=== PATIENT | male | born 1970 | race Two or more races ===

== ENCOUNTER 2022-10-24 17:36 | Inpatient (IN) | payer MEDICAID ==
[~2022-10-24] VITALS: Ht 160 cm; Wt 88.5 kg
--- NOTE | 2022-10-24 17:47 | NUR ---
pt in bed, urine sample collected
--- NOTE | 2022-10-24 17:52 | NUR ---
pt being seen by
[2022-10-24] MEDS ORDERED: PANTOPRAZOLE 40 MG VIAL IV ONE (18:00)
[2022-10-24] MEDS ORDERED: MAG HYDROX/AL HYDROX/SIMETH 30 ML UDC PO ONE (18:00)
[2022-10-24] MEDS ORDERED: IV NS 0.9% 1,000 ML BAG IV ONE (18:00)
[2022-10-24] MEDS ORDERED: LIDOCAINE VISCOUS 2% UD 15 ML UDC MM ONE (18:00)
[2022-10-24] MEDS ORDERED: METOCLOPRAMIDE HCL 10 MG/2 ML VIAL IV ONE (18:00)
[2022-10-24] MEDS ORDERED: MAG HYDROX/AL HYDROX/SIMETH 30 ML UDC ONE (18:06)
[2022-10-24] MEDS ORDERED: PANTOPRAZOLE 40 MG VIAL ONE (18:06)
[2022-10-24] MEDS ORDERED: LIDOCAINE VISCOUS 2% UD 15 ML UDC ONE (18:07)
[2022-10-24] MEDS ORDERED: METOCLOPRAMIDE HCL 10 MG/2 ML VIAL ONE (18:07)
[2022-10-24 18:14] LABS: BASOPHILS % (AUTO) 0.1 % (0.0-2.0); EOSINOPHILS % (AUTO) 0.1 % (0.0-6.0); HEMATOCRIT 49 % (39-51); HEMOGLOBIN 16.2 g/dL (13.5-17.5); LYMPHOCYTES # (AUTO) 0.9 K/uL (0.8-4.8); LYMPHOCYTES % (AUTO) 5.6 % (20.0-44.0); MEAN CORPUSCULAR HGB CONC 33 g/dl (31.0-36.0); MEAN CORPUSCULAR VOLUME 90 fL (80-96); MONOCYTES # (AUTO) 0.7 K/uL (0.1-1.30); MONOCYTES % (AUTO) 4.4 % (2.0-12.0); NEUTROPHILS % (AUTO) 89.8 % (43.0-81.0); PLATELET COUNT (AUTO) 212 K/uL (150-450); RED BLOOD CELL COUNT(AUTO) 5.42 MIL/uL (4.5-6.0); WHITE BLOOD COUNT (AUTO) 16.7 K/uL (4.3-11.0)
[2022-10-24 18:33] LABS: CALCIUM, SERUM 9.2 mg/dL (8.5-10.1); CREATININE 0.9 mg/dL (0.6-1.3); POTASSIUM 3.5 mmol/L (3.5-5.1)
[2022-10-24 18:34] LABS: BILIRUBIN,URINE NEGATIVE (NEGATIVE); COLOR,URINE YELLOW (YELLOW); LEUKOCYTE ESTERASE ,URINE NEGATIVE (NEGATIVE); NITRITE, URINE NEGATIVE (NEGATIVE); PROTEIN,URINE NEGATIVE (NEGATIVE); UGLUCOSE NEGATIVE (NEGATIVE); UROBILINOGEN,URINE 0.2 EU/dL (0.2)
[2022-10-24 18:35] LABS: ALBUMIN 4.1 g/dL (3.4-5.0); BILIRUBIN,DIRECT 0.3 mg/dL (0.0-0.2); BILIRUBIN,TOTAL 1.1 mg/dL (0.2-1.0); TOTAL PROTEIN, SERUM 8.5 g/dL (6.4-8.2)
[2022-10-24 18:46] LABS: BACTERIA,URINE Few /HPF (None Seen); SQUAMOUS EPITHELIAL CELL,UR Few /HPF (None Seen); WBC,URINE NONE SEEN /HPF (0-3)
--- NOTE | 2022-10-24 19:00 | NUR ---
report rec'd from AM shift. here for abd pain. awaiting er provider [email or web address]
[2022-10-24] MEDS ORDERED: PIPERACILLIN /TAZOBACTAM 3.375 G in IV D5W 50 ML IV ONE (19:30)
[2022-10-24] MEDS ORDERED: PIPERACILLIN /TAZOBACTAM 3.375 G VIAL IV ONE (19:48)
--- NOTE | 2022-10-24 21:06 | NUR ---
DR. LUIS NEVILLE ON PHONE CALL WITH DR. YANCEY ADMITTING
--- NOTE | 2022-10-24 21:51 | NUR ---
report given to charge nurse saira jain
[2022-10-24] MEDS ORDERED: Z GUARD REMEDY 4 OZ OINT TP PRN (22:00)
[2022-10-24] MEDS ORDERED: MAG HYDROX/AL HYDROX/SIMETH 30 ML UDC PO PRN (22:00)
[2022-10-24] MEDS ORDERED: ONDANSETRON HCL/PF 4 MG/2 ML VIAL IVP PRN (22:00)
[2022-10-24] MEDS ORDERED: MAGNESIUM HYDROXIDE 30 ML UDC PO PRN (22:00)
[2022-10-24] MEDS ORDERED: MORPHINE SULFATE INJ 2 MG/ML DISP.SYRIN IV PRN (22:00)
[2022-10-24] MEDS ORDERED: ACETAMINOPHEN 325 MG TABLET PO PRN (22:00)
--- NOTE | 2022-10-24 22:05 | NUR ---
pt transported to 3rd floor
--- NOTE | 2022-10-24 22:15 | NUR ---
MS RN ADMITTING NOTE PATIENT TRANSFERRED FROM ER TO [facility] ROOM 326 - 2 VIA GURNEY AT 2200H; PATIENT IS ALERT AND ORIENTED X 4, ABLE TO MAKE NEEDS KNOWN; PATIENT ORIENTED TO STAFF AND ROOM; VITAL SIGNS TAKEN, TEMPERATURE WAS HIGH INITIALLY BUT WENT DOWN TO 98.5; STABLE ON ROOM AIR, BREATHING EVENLY AND UNLABORED; SKIN IS INTACT; WITH IV ACCESS ON LAC G#20; PATIENT'S BELONGINGS ACCOUNTED FOR; SAFETY MEASURES IMPLEMENTED, BED IN LOW AND LOCKED POSITION, SIDE RAILS UP X 2, CALL LIGHT AND TABLE WITHIN REACH; WILL CONTINUE TO MONITOR THROUGHOUT SHIFT
[2022-10-24] MEDS: IV NS 0.9% 1,000 ML IV PRN (22:43)
[2022-10-25] MEDS ORDERED: PIPERACILLIN /TAZOBACTAM 3.375 G VIAL IV ONE (01:22)
[2022-10-25] MEDS: ZOSYN IVPB 3.375 G in IV D5W 50ml IV ONE ×2 (01:29→01:38)
[2022-10-25 06:02] LABS: BASOPHILS % (AUTO) 0.1 % (0.0-2.0); HEMATOCRIT 44 % (39-51); HEMOGLOBIN 14.3 g/dL (13.5-17.5); LYMPHOCYTES # (AUTO) 1.2 K/uL (0.8-4.8); LYMPHOCYTES % (AUTO) 4.2 % (20.0-44.0); MEAN CORPUSCULAR HGB CONC 33 g/dl (31.0-36.0); MEAN CORPUSCULAR VOLUME 90 fL (80-96); MONOCYTES # (AUTO) 1.5 K/uL (0.1-1.30); MONOCYTES % (AUTO) 5.4 % (2.0-12.0); NEUTROPHILS # (AUTO) 25.5 K/uL (1.8-8.9); NEUTROPHILS % (AUTO) 90.3 % (43.0-81.0); PLATELET COUNT (AUTO) 179 K/uL (150-450); RED BLOOD CELL COUNT(AUTO) 4.86 MIL/uL (4.5-6.0); WHITE BLOOD COUNT (AUTO) 28.3 K/uL (4.3-11.0)
[2022-10-25 07:00] VITALS: BP 98/57
[2022-10-25 07:07] LABS: ALBUMIN 3.2 g/dL (3.4-5.0); BILIRUBIN,DIRECT 0.3 mg/dL (0.0-0.2); CALCIUM, SERUM 8.4 mg/dL (8.5-10.1); CREATININE 0.9 mg/dL (0.6-1.3); PHOSPHORUS 4.1 mg/dL (2.5-4.9); POTASSIUM 3.3 mmol/L (3.5-5.1); TOTAL PROTEIN, SERUM 6.8 g/dL (6.4-8.2)
--- NOTE | 2022-10-25 07:15 | NUR ---
MS RN CLOSING NOTE PATIENT RESTING IN BED, ALERT AND ORIENTED X 4, ABLE TO MAKE NEEDS KNOWN; STABLE ON ROOM AIR, BREATHING EVENLY AND UNLABORED, NO RESPIRATORY DISTRESS NOTED; SKIN IS INTACT; WITH IV ACCESS ON LAC G#20 INFUSING WITH NORMAL SALINE AT 75 ML/HR; ADMINISTERED MEDICATIONS PRESCRIBED; PATIENT'S NEEDS ATTENDED; MONITORED PATIENT ACCORDINGLY; SAFETY MEASURES IMPLEMENTED, BED IN LOW AND LOCKED POSITION, SIDE RAILS UP X 2, CALL LIGHT AND TABLE WITHIN REACH; WILL ENDORSE TO AM NURSE FOR JAMES.
--- NOTE | 2022-10-25 07:30 | NUR ---
MS RN OPENING NOTE RECEIVED PATIENT IN BED, AWAKE. ALERT AND ORIENTED X 4, ABLE TO MAKE NEEDS KNOWN. NO C/O PAIN/DISCOMFORT AT THIS TIME. STABLE ON ROOM AIR, NO SIGN OF ACUTE RESPIRATORY DISTRESS NOTED. IV ACCESS ON LAC #20G WITH ONGOING NORMAL SALINE AT 75 ML/HR, INFUSING WELL. PATIENT ON NPO. SAFETY MEASURES IN PLACE: BED LOCKED AND IN LOWEST POSITION, SIDE RAILS UP X 2, CALL LIGHT AND TABLE WITHIN EASY REACH. WILL CONTINUE TO MONITOR.
[2022-10-25] MEDS: PIPERACILLIN /TAZOBACTAM 3.375 G in IV D5W 100 ML IV SCH ×3 (09:15→23:01)
[2022-10-25] MEDS: POTASSIUM CL. PREMIX PERIPHER. 50 ML IV SCH ×4 (09:53→13:43)
--- NOTE | 2022-10-25 13:50 | NUR ---
RN NOTES LAB CALLED AND WAS INFORMED THAT PT'S BLOOD CULTURE IS GRAM POSITIVE COCCI, DR. RUBIO MADE AWARE.
[2022-10-25 16:00] VITALS: BP 135/78
[2022-10-25] MEDS ORDERED: POTASSIUM CHLORIDE 20 MEQ TAB.PRT.SR PO ONE (16:00)
--- NOTE | 2022-10-25 18:37 | NUR ---
MS RN CLOSING NOTE PATIENT RESTING IN BED. A/O X 4, ABLE TO MAKE NEEDS KNOWN. NO C/O PAIN/DISCOMFORT WITHIN THE SHIFT. STABLE ON ROOM AIR, NO SIGN OF ACUTE RESPIRATORY DISTRESS NOTED. IV ACCESS ON LAC #20G WITH ONGOING NORMAL SALINE AT 75 ML/HR, INFUSING WELL. IV ACCESS ON THE RIGHT WRIST,SL, C/D/I. PATIENT STILL ON NPO. SAFETY MEASURES IN PLACE: BED LOCKED AND IN LOWEST POSITION, SIDE RAILS UP X 2, CALL LIGHT AND TABLE WITHIN EASY REACH. WILL ENDORSE JAMES TO ANTENNA INSTALLER.
--- NOTE | 2022-10-25 19:00 | NUR ---
MS RN OPENING NOTE PT IS RESTING IN BED, TALKING WITH HIS CHILDREN. HE IS ALERT AND ORIENTED, AO X 4. PT IS ON RA, TOLERATED WELL. NO S/S OF DISTRESS OR SOB. IV SITE IS AT HIS L AC, #20G, RUNNING NS @75 ML / HR. ANOTHER IV ACCESS IS AT HIS RIGHT WRIST, #20G, SL. IV ACCESS IS PATENT AND INTACT. PT IS ON NPO, INSTRUCTED THE PATIENT SHOULD NOT EAT OR DRINK ANYTHING BY MOUTH, PT VERBALIZED UNDERSTANDING. REMOVED PITCHER AND CUP FROM PT'S TABLE. SAFETY MEASURES ARE IN PLACE: BED IN LOWEST AND LOCKED POSITION; SIDE RAILS UP X 2; CALL LIGHT AND TABLE ARE WITHIN EASY REACH. WILL CONTINUE MONITORING THE PATIENT'S CONDITION, AND PROVIDE THE CARE PT NEEDS.
[2022-10-25 20:00] VITALS: BP 124/77
[2022-10-25] MEDS: IV NS 0.9% 1,000 ML IV PRN (22:33)
[2022-10-26 03:34] LABS: BAND % (MANUAL) 3 % (0.0-5.0); BASOPHILS % (MANUAL) 0 % (0.0-2.0); EOSINOPHILS % (MANUAL) 0 % (0-4); LYMPHOCYTES % (MANUAL) 4 % (16-48); MONOCYTES % (MANUAL) 3 % (0-11.0); NEUTROPHILS % (MANUAL) 90 (42-76)
--- NOTE | 2022-10-26 06:39 | NUR ---
MS RN CLOSING NOTE PATIENT IS SLEEPING IN BED; EASILY BEING AROUSED. HE IS ALERT AND ORIENTED, AO X 4. PT IS ON RA, TOLERATED WELL. NO S/S OF DISTRESS OR SOB. IV SITE IS AT HIS L AC, #20G, RUNNING NS @75 ML / HR. ANOTHER IV ACCESS IS AT HIS RIGHT WRIST, #20G, SL. IV ACCESS IS PATENT AND INTACT. PT HAS BEEN ON NPO, SAFETY MEASURES ARE IN PLACE: BED IN LOWEST AND LOCKED POSITION; SIDE RAILS UP X 2; CALL LIGHT AND TABLE ARE WITHIN EASY REACH. WILL ENDORSE NEXT SHIFT NURSE FOR CONTINUING PT CARE.
--- NOTE | 2022-10-26 07:27 | NUR ---
MS RN OPENING NOTE RECEIVED PATIENT IN BED, AWAKE. A/O X 4, CALM AND COOPERATIVE, ABLE TO MAKE NEEDS KNOWN. NO C/O PAIN/DISCOMFORT AT THIS TIME. STABLE ON ROOM AIR, NO SIGN OF ACUTE RESPIRATORY DISTRESS NOTED. IV ACCESS ON LAC #20G WITH ONGOING NORMAL SALINE AT 75 ML/HR, INFUSING WELL. IV ACCESS IN RIGHT WRIST #20G, SL, C/D/I. PATIENT ON NPO. SAFETY MEASURES IN PLACE: BED LOCKED AND IN LOWEST POSITION, SIDE RAILS UP X 2, CALL LIGHT AND TABLE WITHIN EASY REACH. WILL CONTINUE TO MONITOR.
[2022-10-26] MEDS: PIPERACILLIN /TAZOBACTAM 3.375 G in IV D5W 100 ML IV SCH ×3 (07:42→23:41)
[2022-10-26 08:38] LABS: BASOPHILS % (AUTO) 0.2 % (0.0-2.0); EOSINOPHILS % (AUTO) 0.2 % (0.0-6.0); HEMATOCRIT 42 % (39-51); HEMOGLOBIN 13.9 g/dL (13.5-17.5); LYMPHOCYTES # (AUTO) 1.6 K/uL (0.8-4.8); LYMPHOCYTES % (AUTO) 11.3 % (20.0-44.0); MEAN CORPUSCULAR HGB CONC 33 g/dl (31.0-36.0); MEAN CORPUSCULAR VOLUME 90 fL (80-96); MONOCYTES # (AUTO) 1.1 K/uL (0.1-1.30); MONOCYTES % (AUTO) 7.4 % (2.0-12.0); NEUTROPHILS # (AUTO) 11.5 K/uL (1.8-8.9); NEUTROPHILS % (AUTO) 80.9 % (43.0-81.0); PLATELET COUNT (AUTO) 155 K/uL (150-450); RED BLOOD CELL COUNT(AUTO) 4.66 MIL/uL (4.5-6.0); WHITE BLOOD COUNT (AUTO) 14.2 K/uL (4.3-11.0)
--- NOTE | 2022-10-26 09:00 | NUR ---
RN NOTES DR. RUBIO IN THE UNIT, ORDERED REGULAR DIET FOR PT. CARRIED OUT.
[2022-10-26 09:17] LABS: CALCIUM, SERUM 8.4 mg/dL (8.5-10.1); CREATININE 0.9 mg/dL (0.6-1.3); POTASSIUM 3.9 mmol/L (3.5-5.1)
[2022-10-26 09:21] LABS: ALBUMIN 2.9 g/dL (3.4-5.0); BILIRUBIN,TOTAL 1.3 mg/dL (0.2-1.0); TOTAL PROTEIN, SERUM 6.9 g/dL (6.4-8.2)
[2022-10-26] MEDS: IV NS 0.9% 1,000 ML IV PRN (15:56)
--- NOTE | 2022-10-26 18:43 | NUR ---
MS RN CLOSING NOTE PATIENT IN BED, RESTING. A/O X 4, ABLE TO MAKE NEEDS KNOWN. NO C/O PAIN/DISCOMFORT WITHIN THE SHIFT. STABLE ON ROOM AIR, TOLERATED WELL. IV ACCESS ON LAC #20G WITH ONGOING NS AT 75 ML/HR, INFUSING WELL. IV ACCESS IN RIGHT WRIST #20G, SL, C/D/I. NEEDS ATTENDED. SAFETY MEASURES IN PLACE: BED LOCKED AND IN LOWEST POSITION, SIDE RAILS UP X 2, CALL LIGHT AND TABLE WITHIN EASY REACH. WILL ENDORSE JAMES TO SAND DRIER.
[2022-10-26 20:00] VITALS: BP_SYST 105; BP_SYST 108; BP_DIAS 56; BP_DIAS 72
--- NOTE | 2022-10-27 05:12 | NUR ---
CLOSING NOTES: ALERT AND ORIENTATED x4 NO C/O OF PAIN THIS 12 HOURS ABD ROUND SOFT AUDIBLE BS CONTINENT UA AMBULATES TO THE BATHROOM COOPERATIVE THIS 12 HOURS
[2022-10-27] MEDS: IV NS 0.9% 1,000 ML IV PRN (05:22)
[2022-10-27 05:50] LABS: BASOPHILS % (AUTO) 0.2 % (0.0-2.0); HEMATOCRIT 41 % (39-51); HEMOGLOBIN 13.6 g/dL (13.5-17.5); LYMPHOCYTES # (AUTO) 1.6 K/uL (0.8-4.8); LYMPHOCYTES % (AUTO) 11.9 % (20.0-44.0); MEAN CORPUSCULAR HGB CONC 33 g/dl (31.0-36.0); MEAN CORPUSCULAR VOLUME 91 fL (80-96); MONOCYTES # (AUTO) 1.2 K/uL (0.1-1.30); MONOCYTES % (AUTO) 9.2 % (2.0-12.0); NEUTROPHILS # (AUTO) 10.4 K/uL (1.8-8.9); NEUTROPHILS % (AUTO) 77.7 % (43.0-81.0); PLATELET COUNT (AUTO) 165 K/uL (150-450); RED BLOOD CELL COUNT(AUTO) 4.54 MIL/uL (4.5-6.0); WHITE BLOOD COUNT (AUTO) 13.3 K/uL (4.3-11.0)
[2022-10-27 06:04] LABS: ALBUMIN 2.7 g/dL (3.4-5.0); BILIRUBIN,TOTAL 1.2 mg/dL (0.2-1.0); CALCIUM, SERUM 8.4 mg/dL (8.5-10.1); CREATININE 0.9 mg/dL (0.6-1.3); POTASSIUM 3.8 mmol/L (3.5-5.1); TOTAL PROTEIN, SERUM 6.8 g/dL (6.4-8.2)
--- NOTE | 2022-10-27 07:35 | NUR ---
MS RN OPENING NOTE RECEIVED PATIENT IN BED, AWAKE. A/O X 4, ABLE TO MAKE NEEDS KNOWN. NO C/O PAIN/DISCOMFORT AT THIS TIME. STABLE ON ROOM AIR, BREATHING EVEN AND NON LABORED. NO SIGN OF ACUTE RESPIRATORY DISTRESS NOTED. IV ACCESS ON LAC #20G WITH ONGOING NORMAL SALINE AT 75 ML/HR, INFUSING WELL. IV ACCESS IN RIGHT WRIST #20G, RUNNING NS @75 ML/HR. SAFETY MEASURES IN PLACE: BED LOCKED AND IN LOWEST POSITION, SIDE RAILS UP X 2, CALL LIGHT AND TABLE WITHIN EASY REACH. WILL CONTINUE TO MONITOR.
[2022-10-27] MEDS: PIPERACILLIN /TAZOBACTAM 3.375 G in IV D5W 100 ML IV SCH ×3 (08:02→23:26)
--- NOTE | 2022-10-27 18:38 | NUR ---
MS RN CLOSING NOTE PATIENT RESTING IN BED. A/O X 4, ABLE TO MAKE NEEDS KNOWN. NO C/O PAIN/DISCOMFORT DURING THE SHIFT. STABLE ON ROOM AIR, TOLERATED WELL. IV ACCESS ON LAC #20G RUNNING ZOSYN @25ML/HR, INFUSING WELL. IV ACCESS IN RIGHT WRIST #20G, SL, C/D/I. NEEDS ATTENDED. SAFETY MEASURES IN PLACE: BED LOCKED AND IN LOWEST POSITION, SIDE RAILS UP X 2, CALL LIGHT AND TABLE WITHIN EASY REACH. WILL ENDORSE JAMES TO RN BABY.
[2022-10-27 20:00] VITALS: BP 129/69
--- NOTE | 2022-10-28 05:00 | NUR ---
CLOSING NOTES: ALERT AND ORIENTATED X4 DENIES PAIN WHEN ASKED HE IS PASSING GAS HOPING TO GO HOME THIS WEEKEND CONT. IV IVP ATB
[2022-10-28 06:10] LABS: BASOPHILS % (AUTO) 0.3 % (0.0-2.0); EOSINOPHILS % (AUTO) 2.2 % (0.0-6.0); HEMATOCRIT 41 % (39-51); HEMOGLOBIN 13.6 g/dL (13.5-17.5); LYMPHOCYTES # (AUTO) 1.6 K/uL (0.8-4.8); LYMPHOCYTES % (AUTO) 17.7 % (20.0-44.0); MEAN CORPUSCULAR HGB CONC 34 g/dl (31.0-36.0); MEAN CORPUSCULAR VOLUME 90 fL (80-96); MONOCYTES # (AUTO) 0.8 K/uL (0.1-1.30); MONOCYTES % (AUTO) 9.1 % (2.0-12.0); NEUTROPHILS # (AUTO) 6.5 K/uL (1.8-8.9); NEUTROPHILS % (AUTO) 70.7 % (43.0-81.0); PLATELET COUNT (AUTO) 196 K/uL (150-450); RED BLOOD CELL COUNT(AUTO) 4.51 MIL/uL (4.5-6.0); WHITE BLOOD COUNT (AUTO) 9.2 K/uL (4.3-11.0)
[2022-10-28 06:23] LABS: ALBUMIN 2.6 g/dL (3.4-5.0); BILIRUBIN,TOTAL 0.9 mg/dL (0.2-1.0); CALCIUM, SERUM 8.4 mg/dL (8.5-10.1); CREATININE 0.8 mg/dL (0.6-1.3); POTASSIUM 3.6 mmol/L (3.5-5.1); TOTAL PROTEIN, SERUM 6.6 g/dL (6.4-8.2)
[2022-10-28 07:00] VITALS: BP_SYST 114; BP_SYST 68; BP_DIAS 114; BP_DIAS 68
--- NOTE | 2022-10-28 07:10 | NUR ---
MS RN OPENING NOTE RECEIVED PATIENT IN BED, AWAKE. A/O X 4, ABLE TO MAKE NEEDS KNOWN. NO C/O PAIN/DISCOMFORT AT THIS TIME. STABLE ON ROOM AIR, BREATHING EVEN AND NON LABORED. NO SIGN OF ACUTE RESPIRATORY DISTRESS NOTED. IV ACCESS ON LAC #20G HR, . ANOTHER IV ACCESS ON RIGHT WRIST #20G, RUNNING NS @75 ML/HR INFUSING WELL. SAFETY MEASURES IN PLACE: BED LOCKED IN LOWEST POSITION, SIDE RAILS UP X 2, CALL LIGHT AND TABLE WITHIN REACH. WILL CONTINUE TO MONITOR THE PATIENT.
[2022-10-28] MEDS: PIPERACILLIN /TAZOBACTAM 3.375 G in IV D5W 100 ML IV SCH ×2 (08:30→16:00)
[2022-10-28 10:36] VITALS: BP 114/68
--- NOTE | 2022-10-28 10:37 | NUR ---
NOTICED UNUSUAL DATA ON VITAL SIGNS INPUTTED BY PRODUCTION LINE TECHNICIAN ON INTERVENTIONS. CORRECT DATA WAS INPUTTED. PRODUCTION LINE TECHNICIAN INFORMED, CHARGE NURSE INFORMED.
[2022-10-28] MEDS ORDERED: AMOX-430 PO (10:52)
[2022-10-28] MEDS ORDERED: HYDR-3972 PO (10:52)
--- NOTE | 2022-10-28 14:06 | NUR ---
MS INTERPERSONAL COMMUNICATIONS PROFESSOR NOTES DISCHARGED PATIENT ORDERED, AWAKE. A/O X 4, ABLE TO MAKE NEEDS KNOWN. NO C/O PAIN/DISCOMFORT AT THIS TIME. STABLE ON ROOM AIR, BREATHING EVEN AND NON LABORED. NO SIGN OF ACUTE RESPIRATORY DISTRESS NOTED. BOTH IV ACCESS ON LAC #20G HR, AND ON RIGHT WRIST #20G REMOVED, C/D/I SKIN, NO BLEEDING NOTED. PATIENT'S BELONGINGS ACCOUNTED FOR, DISCHARGE INSTRUCTIONS GIVEN TO PATIENT BOTH VERBALLY AND IN WRITING, IN PARTICULAR, PATIENT VERBALIZED UNDERSTANDING OF RX AUGMENTIN 875/12 PO BID FOR 10 DAYS AND F/U PCP IN 1 WEEK. PATIENT WAS ACCOMPANIED BY HIS AND ASSISTED BY KITCHEN STEWARDESS WHEN HE LEFT MS 3/F AT 1325. KITCHEN STEWARDESS WILL ASSIST PATIENT UP TO HOSP EXIT. CHARGE NURSE AWARE OF THE DISCHARGE.
== END 2022-10-28 13:25 | disposition home or self-care (01) | DRG 248 ==
LOC: ER 17:38 → MED 21:34
PROVIDERS: ADMIT Internal Medicine; ATTEND Nurse Practitioner Acute Care
DX: A04.9 Bacterial intestinal infection, unspecified (principal); N17.0 Acute kidney failure with tubular necrosis; E87.20 Acidosis, unspecified; K76.0 Fatty (change of) liver, not elsewhere classified; Z20.822 Contact with and (suspected) exposure to COVID-19; K21.9 Gastro-esophageal reflux disease without esophagitis; R74.01 Elevation of levels of liver transaminase levels; D72.829 Elevated white blood cell count, unspecified; E80.6 Other disorders of bilirubin metabolism; E87.6 Hypokalemia; Z68.34 Body mass index [BMI] 34.0-34.9, adult; E66.9 Obesity, unspecified
CPT/HCPCS: 36415; 71045-TC; 76700-TC; 78226; 80048-TC; 80053-TC; 80076-TC; 81001; 83605-TC; 83690-TC; 83735-TC; 84100-TC; 85025-TC; 86803; 87040-TC; 87081-TC; 87340; 87806; 93307-TC; A4223; A9537; C9113; C9803; G0378; J2543; J2765; J3480; J7030; J7040; J7060